=== PATIENT | male | born 1995 | race Caucasian/White ===

== ENCOUNTER 2016-12-27 21:51 | Emergency (ER) | payer BC ==
[2016-12-27] MEDS ORDERED: Ondansetron ODT TAB* 4 MG PO ONE (22:28)
[2016-12-27] MEDS ORDERED: Lidocaine/Epineph/Tetraca SOL* (LET solution) 4 ML BTL TOPICAL ONE (22:28)
[2016-12-27 23:58] VITALS: BP 135/73
--- NOTE | 2016-12-28 01:07 | ED ---
Head Injury - HPI Summary HPI Summary: Pt here w/ injury to Lt supraorbital ridge - was opening car door to get inside and accidentally struck himself in the face - headache, photophobia, nausea. Denies LOC, numbness, tingling, weakness. Lac. Imms UTD. - History Of Current Complaint Chief Complaint: EDHeadInjury Stated Complaint: HEAD INJURY Time Seen by Provider: 12/27/16 22:23 Hx Obtained From: Patient, Family/Wildlife Technician - Paul, roommate Pain Intensity: 4 - Allergies/Home Medications Allergies/Adverse Reactions: Allergies Allergy/AdvReac Type Severity Reaction Status Date / Time No Known Allergies Allergy Verified 01/28/16 08:46 PMH/Surg Hx/FS Hx/Imm Hx Respiratory History: Reports: Hx Asthma - last year. Infectious Disease History: No Infectious Disease History: Denies: Traveled Outside the [place] in Last 30 Days - Family History Family History: FHx of asthma - father - Social History Alcohol Use: None Substance Use Type: Reports: Marijuana Smoking Status (MU): Never Smoked Tobacco Physical Exam Vital Signs On Initial Exam: Initial Vitals Temp Pulse Resp BP Pulse Ox 96.9 F 68 16 136/88 98 12/27/16 21:55 12/27/16 21:55 12/27/16 21:55 12/27/16 21:55 12/27/16 21:55 - [place] Coma Scale Coma Scale Total: 15 Procedures - Laceration/Wound Repair 1 Location: face - Lt eyebrow Description: Linear Anesthesia: Local, Lido, Epi Length, Depth and Shape: 1cm x 3mm Betadine Prep?: No - chlorhexadine Laceration/Wound Explored: clean Closure: Single Layer Suture Type: Prolene - 6-0 Number of Sutures: 3 Layer Closure?: No Sterile Dressing Applied?: Yes - triple anbx ointment Diagnostics - Vital Signs Vital Signs Temp Pulse Resp BP Pulse Ox 12/27/16 23:30 60 16 135/73 98 12/27/16 21:55 96.9 F 68 16 136/88 98 - Laboratory Lab Statement: Any lab studies that have been ordered have been reviewed, and results considered in the medical decision making process. Head Injury Course/Dx - Diagnoses Provider Diagnoses: Concussion, Laceration of left eyebrow Discharge - Discharge Plan Condition: Stable Disposition: HOME Prescriptions: Ondansetron ODT TAB* [Zofran 4 MG Odt TAB*] 4 mg PO Q8H PRN #9 tab.odt PRN Reason: Nausea Patient Education Materials: Care For Your Stitches (ED), Concussion (ED), Facial Laceration (ED) Referrals: [facility] - Farshad MORA [Primary Care Provider] - Additional Instructions: Wound: gently wash daily with soap and water - rinse well and pat dry then reapply triple antibiotic ointment You may apply ice and take ibuprofen for pain/swelling Follow-up with [facility] in 5 days for wound check and suture removal *If you develop redness, swelling, purulent drainage, fever, chills, seek medical attention sooner Concussion: Rest both physically and cognitively for 48 hours - followup with [facility] after this time for re-evaluation for safe return to activities *If symptoms are still present, you may require a longer rest period. Do not return to full activity with symptoms as you may cause worse or permanent damage *If you develop severe headache, visual change, vomiting, numbness, weakness, syncope, return to ED
--- NOTE | 2016-12-28 07:46 | RAD ---
INDICATION: Head injury. COMPARISON: There are no prior studies available for comparison. TECHNIQUE: Contiguous axial sections of the brain were obtained from the skull base to the vertex without contrast. FINDINGS: The ventricles, cisterns and sulci are within normal limits. No significant focal abnormality or mass effect is seen. There is no evidence for hemorrhage. No significant focal osseous abnormality is seen. The visualized portion of the paranasal sinuses and mastoid air cells appear clear. IMPRESSION: NO EVIDENCE FOR ACUTE INTRACRANIAL ABNORMALITY.
--- NOTE | 2016-12-28 07:52 | RAD ---
INDICATION: Facial trauma. COMPARISON: There are no prior studies available for comparison. TECHNIQUE: Contiguous axial sections of the axial images of the facial bones were obtained and reconstructed in the coronal and sagittal planes. FINDINGS: Soft tissue swelling is noted anterior to the left frontal bone. The liz of the orbits and maxillary sinuses appear intact. The zygomatic arches appear intact. There is no evidence for a fracture of the mandible. The nasal bones appear hypoplastic in the midline. No fracture is seen. There is moderate S-shaped deviation of the nasal septum which is convex toward the left along the anterior portion and toward the right along its posterior portion. The pterygoid plates appear intact. There is mild mucosal thickening within the maxillary sinuses. The paranasal sinuses otherwise appear clear. IMPRESSION: NO EVIDENCE OF FRACTURE.
== END 2016-12-28 01:14 | disposition home or self-care (01) ==
LOC: ED 21:51
DX: S06.0X9A Concussion with loss of consciousness of unspecified duration, initial encounter (principal); W22.8XXA Striking against or struck by other objects, initial encounter; Y93.9 Activity, unspecified; Y92.9 Unspecified place or not applicable; S01.112A Laceration without foreign body of left eyelid and periocular area, initial encounter
CPT/HCPCS: 12011; 70450; 70486; 99282; A9270-GY